=== PATIENT | female | born 1955 | race Caucasian/White ===

== ENCOUNTER → 2020-01-17 | Outpatient (CLI) | payer BC, OTHER ==
[~2020-01-17] MED LIST: AMBIEN 10 MG TA10 MG PO; KEPPRA250 MG PO; LOTREL 5-10 MG1 EACH PO; NEXIUM40 MG PO; PROBIOTIC1 EACH PO; SLOW FE 160MG160 MG PO; WELCHOL 625 MG625 MG PO; ZYRTEC10 M2 PO
== END ==
LOC: BC 10:25
PROVIDERS: ATTEND Family Medicine
DX: Z12.31 Encounter for screening mammogram for malignant neoplasm of breast (principal)